=== PATIENT | male | born 1955 | race Caucasian/White ===

== ENCOUNTER 2020-08-02 21:25 | Emergency (ER) | payer BC, OTHER ==
[2020-08-02] MEDS ORDERED: ONDANSETRON HCL INJ/PF 4 MG/2 ML SDV IV ONE (22:28)
[2020-08-02] MEDS ORDERED: DIAZEPAM INJ 10 MG/2 ML DISP.SYRIN IV ONE ×2 (22:29→23:49)
[2020-08-02] MEDS ORDERED: HYDROMORPHONE HCL INJ/PF 2 MG/ML AMPULE IV ONE ×2 (22:30→23:49)
--- NOTE | 2020-08-02 22:35 | ER Document Report ---
ED General - General Chief Complaint: Back Pain Stated Complaint: BACK/LEG PAIN Time Seen by Provider: 08/02/20 22:13 Primary Care Provider: SALOMÓN CHÁVEZ MD [Primary Care Provider] - Follow up as needed - [facility] Context: Time:2219 Chief Complaint: [Left sided buttock and lower extremity pain] [This is a 65-year-old male with a diagnosis of left-sided sciatica presenting complaining of severe left-sided pain. Patient states that he has been having a moderate amount of pain secondary to the sciatica on his left side and is scheduled for a follow-up with a specialist in 3 days. Patient states he was bending over today and had sudden onset of pain that he describes as sharp and rates as a 10 on a scale of 0-10. Patient states the pain starts from his left buttock and radiates down the back of his left leg. Patient states pain is so bad he is not able to bear weight on his left leg. ] History obtained from [patient] Symptoms began:[Earlier today] Onset: [Sudden] Timing: [Sudden] Quality: [Sharp] Intensity: [10 out of 10] Location: [Left buttock radiating down left leg] Radiation: [As above] Aggravating factors: Movement, weightbearing Relieving factors: [none] [Denies] SOB [Denies] nausea [Denies] vomiting [Denies] sweats [Denies] fever [Denies] cough [Denies] calf or leg swelling or pain - Related Data Allergies/Adverse Reactions: No Known Allergies Allergy (Unverified 08/02/20 21:36) Past Medical History - General Information source: Patient - Social History Smoking Status: Unknown if Ever Smoked Family History: Reviewed & Not Pertinent Neurological Medical History: Reports: Other - Sciatica Review of Systems - Review of Systems Notes: Review of systems as below unless otherwise stated in HPI. CONSTITUTIONAL [No] fever, [No] chills. EYES [No] eye pain. ENT [No] URI symptoms, [No] sore throat, [No] ear pain. CARDIOVASCULAR [No] chest pain, [No] palpitations, [No] edema. RESPIRATORY [No] Cough, [No] SOB, [No] wheezing. GASTROINTESTINAL [No] abdominal pain, [No] nausea, [No] Diarrhea, [No] Vomiting, [No] constipation, [No] melena, [No] rectal bleeding. GENITOURINARY [No] dysuria, [No] urinary frequency, [No] hematuria, [No] urinary urgency MUSCULOSKELETAL [No] Back pain. SKIN [No] Rash. NEUROLOGIC [No] Headache, [No] recent seizures, [No] paralysis,[No] parathesias. Left buttock pain radiating down left posterior extremity ENDOCRINE [No] polyuria. HEMO/LYMPATIC [No] easy brusing PSYCHIATRIC [No] depression. Physical Exam - Vital signs Vitals: Temp Pulse Resp BP Pulse Ox 98.1 F 73 18 151/80 H 98 08/02/20 21:25 08/02/20 21:25 08/02/20 21:25 08/02/20 21:25 08/02/20 21:25 - Notes Notes: CONSTITUTIONAL [Vital signs reviewed, Patient appears very uncomfortable, Alert and oriented X 3, Normal stature.] HEAD [Atraumatic, Normocephalic.] EYES [Eyes are normal to inspection, No discharge from eyes, Extraocular muscles intact, Sclera are normal, Conjunctiva are normal.] ENT [External ears normal to inspection, Nose examination normal, Mouth normal to inspection.] NECK [Normal ROM, No jugular venous distention, No meningeal signs, ] RESPIRATORY CHEST [Chest is nontender, Breath sounds normal, No respiratory distress.] CARDIOVASCULAR [RRR, No murmurs, Normal S1 S2, No rub, No gallop.] ABDOMEN [Abdomen is nontender, No pulsatile masses, No other masses, Bowel sounds normal, No distension, No peritoneal signs, No hernias.] BACK [There is no CVA Tenderness, There is no tenderness to palpation, Normal inspection.] UPPER EXTREMITY [Inspection normal, No cyanosis, No clubbing, No edema, LOWER EXTREMITY Positive left straight leg raise at 15 degrees no cyanosis, No clubbing, No edema, No calf tenderness, NEURO [No focal motor deficits, No focal sensory deficits, Speech normal.] SKIN [Skin is warm, Skin is dry, Skin is normal color.] PSYCHIATRIC [Normal affect. ] Course - Re-evaluation Re-evalutation: 08/03/20 02:59 Patient states his pain is improved at this point. Diagnosis, plan of treatment, follow-up discussed with patient and patient's . Both are in agreement with plan. All questions were answered prior to discharge. - Vital Signs Vital signs: Temp Pulse Resp BP Pulse Ox 98.1 F 73 18 151/80 H 98 08/02/20 21:25 08/02/20 21:25 08/02/20 21:25 08/02/20 21:25 08/02/20 21:25 - Laboratory Results Critical Laboratory Results Reviewed: No Critical Results - Radiology Results Critical Radiology Results Reviewed: No Critical Results Discharge - Discharge Clinical Impression: Left sided sciatica Condition: Stable Disposition: HOME, SELF-CARE Additional Instructions: Return to the Emergency Department without delay if any worse. Follow up with your sciatica doctor on 08/04/2020 HOME CARE INSTRUCTIONS & INFORMATION: Thank you for choosing us for your medical needs. We hope you're satisfied with the care you received. After you leave, you must properly care for your problem and, at the same time, observe its progress. Any condition can change. Some illnesses can change rapidly over hours or days. If your condition worsens, return to the Emergency Department or see your physician promptly. ABOUT YOUR X-RAYS AND EKG'S: If you had an EKG or X-rays taken, they have been read by the Emergency Physician. The X-rays and EKG's will also be read by a Radiologist or Reimbursement Spec within 24 hours. If discrepancies are noted, you will be notified by telephone. Please be certain the ED has a correct telephone number & address where you can be reached. Also, realize that some fractures or abnormalities do not show up on initial X-rays. If your symptoms continue, see your physician. ABOUT YOUR LABORATORY TEST: If you had laboratory tests, the results have been reviewed by the Emergency Physician. Some test results (for example cultures) may not be available for several days. You will be contacted if any test result shows you need additional treatment. Please be certain the ED has a correct telephone number and address where you can be reached. ABOUT YOUR MEDICATIONS: You will receive instructions on how to take your medicine on the prescription label you receive. Additional information may be provided by the Pharmacy. If you have questions afterwards, call the ED for clarification or further instructions. Some prescribed medications may cause drowsiness. Do not perform tasks such as driving a car or operating machinery without consulting your Pharmacist. If you feel you need a refill of pain medication, your condition will need re-evaluation. Please do not call for a refill of any medication. ABOUT YOUR SIGNATURE: Signature of this document acknowledges to followin. Understanding that you received emergency treatment and that you may be released before al medical problems are known or treated. Please be certain the ED has a correct phone number & address where you can be reached. 2. Acknowledgement that you will arrange for follow-up care as recommended. 3. Authorization for the Emergency Physician to provide information to your follow-up Physician in order to maximize your care. AT ANY TIME, IF YOUR SYMPTOMS CHANGE SIGNIFICANTLY OR WORSEN OR YOU DEVELOP NEW SYMPTOMS, RETURN TO THE EMERGENCY DEPARTMENT IMMEDIATELY FOR RE-EVALUATION. OUR GOAL IS TO PROVIDE EXCELLENT MEDICAL CARE! WE HOPE THAT WE HAVE MET YOUR EXPECTATIONS DURING YOUR EMERGENCY DEPARTMENT VISIT AND THAT YOU FEEL YOU HAVE RECEIVED EXCELLENT CARE! Sciatica Your symptoms suggest "sciatica." The pain of sciatica typically radiates down the leg. Numbness in the foot or calf may also occur. Sciatica is caused by irritation of the sciatic nerve or its branches. The irritation can be due to a herniated disk in the spine, swelling and inflammation in the muscles surrounding the sciatic nerve, or direct injury of the nerve itself. Most cases of sciatica will resolve with medical treatment. Bed rest is usually recommended initially. Surgery is only necessary when the condition will not improve with rest and antiinflammatory medication. Muscle relaxers are often given if muscle soreness is present. A CAT scan of the back may be performed if a herniated disk is suspected. Re-examination is necessary if you develop increasing numbness, localized weakness in the foot or ankle, or if the pain does not respond to rest. Prescriptions: Hydromorphone HCl [Dilaudid 2 mg Tablet] 2 mg PO Q6HP PRN #15 tablet PRN Reason: pain Diazepam [Valium] 5 mg PO Q8HP PRN #15 tablet PRN Reason: spasm Prednisone [Deltasone 20 mg Tablet] 3 tab PO DAILY 4 Days #12 tablet Referrals: SALOMÓN CHÁVEZ MD [Primary Care Provider] - Follow up as needed
[2020-08-02] MEDS ORDERED: METHYLPREDNISOLONE INJ 125 MG/2 ML SDV IV ONE (23:48)
[2020-08-03] MEDS ORDERED: HYDROMORPHONE HCL INJ/PF 2 MG/ML AMPULE IV ONE (01:45)
[2020-08-03] MEDS ORDERED: DIAZEPAM INJ 10 MG/2 ML DISP.SYRIN IV ONE (01:46)
[2020-08-03] MEDS ORDERED: HYDROMORPHONE HCL 2 MG TABLET PO ONE (02:57)
[2020-08-03] MEDS ORDERED: DIAZEPAM 5 MG TABLET PO ONE (02:58)
[2020-08-03 03:31] VITALS: BP 135/80
== END 2020-08-03 03:31 | disposition home or self-care (01) ==
LOC: ER 21:25
DX: M54.32 Sciatica, left side (principal)
CPT/HCPCS: 96376; 99284; 96374; 96375; J3360 ×2; J2930; J1170 ×2; J2405

== ENCOUNTER 2020-08-22 19:48 | Emergency (ER) | payer OTHER ==
--- NOTE | 2020-08-22 20:27 | ER Document Report ---
ED Medical Screen (RME) - General Chief Complaint: Shortness Of Breath Stated Complaint: SHORTNESS OF BREATH,PAIN ALL OVER Time Seen by Provider: 08/22/20 20:13 Primary Care Provider: SALOMÓN CHÁVEZ MD [Primary Care Provider] - Follow up as needed Mode of Arrival: Wheelchair Information source: Patient Notes: Patient is a 65-year-old male presenting to the emergency department chief complaint of bilateral rib pain, shortness of breath and generalized body aches. Patient reports pain started yesterday. He denies any fever, chills, nausea, vomiting. He had a negative Covid test on Tuesday. Patient and are very concerned that there is something very wrong. Dyspnea noted on exertion. Lung sounds clear otherwise. I have greeted and performed a rapid initial assessment of this patient. A comprehensive ED assessment and evaluation of the patient, analysis of test results and completion of the medical decision making process will be conducted by additional ED providers. I have specifically instructed the patient or family members with the patient to immediately return to any nursing staff should anything change in the patient's condition or with their chief complaint. - Related Data Allergies/Adverse Reactions: No Known Allergies Allergy (Unverified 08/02/20 21:36) Physical Exam - Vital signs Vitals: Temp Pulse Resp BP Pulse Ox 98.5 F 98 22 H 131/71 H 94 08/22/20 20:12 08/22/20 20:12 08/22/20 20:12 08/22/20 20:12 08/22/20 20:12 Course - Vital Signs Vital signs: Temp Pulse Resp BP Pulse Ox 98.5 F 98 22 H 131/71 H 94 08/22/20 20:12 08/22/20 20:12 08/22/20 20:12 08/22/20 20:12 08/22/20 20:12 - Laboratory Results Result Diagrams: 08/22/20 20:39 08/22/20 20:39 Doctor's Discharge - Discharge Referrals: SALOMÓN CHÁVEZ MD [Primary Care Provider] - Follow up as needed
[2020-08-22 20:52] LABS: ABSOLUTE EOSINOPHILS # (AUTO) 0.2 10^3/uL (0.0-0.6); ABSOLUTE LYMPHOCYTES (AUTO) 1.2 10^3/uL (0.5-4.7); ABSOLUTE MONOCYTES (AUTO) 1.3 10^3/uL (0.1-1.4); ABSOLUTE NEUT (AUTO) 10.1 10^3/uL (1.7-8.2); BASOPHILS % (AUTO) 0.3 % (0-2); EOSINOPHILS % (AUTO) 1.3 % (0-6); HEMATOCRIT 39.8 % (37.9-51.0); HEMOGLOBIN 13.6 g/dL (13.5-17.0); LYMPHOCYTES % (AUTO) 9.3 % (13-45); MEAN CORPUSCULAR HEMOGLOBIN 31.7 pg (27.0-33.4); MEAN CORPUSCULAR HGB CONC 34.2 g/dL (32.0-36.0); MEAN CORPUSCULAR VOLUME 93 fl (80-97); MONOCYTES % (AUTO) 10.1 % (3-13); PLATELET COUNT 248 10^3/uL (150-450); RED BLOOD COUNT 4.29 10^6/uL (4.35-5.55); RED CELL DISTRIBUTION WIDTH 12.1 % (11.5-14.0); TOTAL CELLS COUNTED % (AUTO) 100 %; VENOUS BLOOD HCO3 28.4 mmol/L (20-32); VENOUS BLOOD PCO2 58.8 mmHg (35-63); VENOUS BLOOD PH 7.3 (7.30-7.42); WHITE BLOOD COUNT 12.7 10^3/uL (4.0-10.5)
[2020-08-22 21:08] LABS: ALBUMIN 3.8 g/dL (3.5-5.0); ALKALINE PHOSPHATASE 67 U/L (38-126); ANION GAP 6 (5-19); ASPARTATE AMINO TRANSFERASE 36 U/L (17-59); BILIRUBIN,DIRECT 0.2 mg/dL (0.0-0.4); BILIRUBIN,TOTAL 0.5 mg/dL (0.2-1.3); BLOOD UREA NITROGEN 12 mg/dL (7-20); CARBON DIOXIDE 30 mmol/L (22-30); CHLORIDE 99 mmol/L (98-107); GLUCOSE 145 mg/dL (75-110); POTASSIUM 4.2 mmol/L (3.6-5.0); TOTAL PROTEIN 6.6 g/dL (6.3-8.2)
[2020-08-22 21:20] LABS: NT PRO BNP 35 pg/mL (<125)
[2020-08-22 21:25] LABS: TROPONIN I < 0.012 ng/mL
--- NOTE | 2020-08-22 22:02 | EKG REPORT ---
SEVERITY:- ABNORMAL ECG - SINUS RHYTHM LEFT ATRIAL ABNORMALITY PROBABLE POSTERIOR INFARCT : Confirmed by: Paty Olvera 22-Aug-2020 22:01:44
--- NOTE | 2020-08-22 22:03 | RADIOLOGY REPORT (SQ) ---
EXAM DESCRIPTION: XR CHEST 1 VIEW COMPLETED DATE/TME: 08/22/2020 21:06 CLINICAL HISTORY: 65 years, Male, shortness of breath COMPARISON: None. NUMBER OF VIEWS: 1 TECHNIQUE: Portable chest LIMITATIONS: None. FINDINGS: Heart size is normal. Bibasilar airspace opacities. No pneumothorax. Tiny bibasilar effusions IMPRESSION: Bibasilar airspace opacities with tiny bibasilar effusions copyright 2011 [employer]- All Rights Reserved
[2020-08-22 22:50] LABS: APPEARANCE,URINE CLEAR; BILIRUBIN,URINE NEGATIVE (NEGATIVE); COLOR,URINE YELLOW; GLUCOSE, URINE NEGATIVE (NEGATIVE); KETONES,URINE NEGATIVE (NEGATIVE); LEUKOCYTE ESTERASE,URINE NEGATIVE (NEGATIVE); NITRITE,URINE NEGATIVE (NEGATIVE); PROTEIN,URINE NEGATIVE (NEGATIVE); URINE SPECIFIC GRAVITY 1.019
[2020-08-23 03:37] VITALS: BP 135/92
[2020-08-23] MEDS ORDERED: AZITHROMYCIN 250 MG TABLET PO ONE (03:42)
--- NOTE | 2020-08-23 03:49 | ER Document Report ---
ED Respiratory Problem - General Chief Complaint: Shortness Of Breath Stated Complaint: SHORTNESS OF BREATH,PAIN ALL OVER Time Seen by Provider: 08/22/20 20:13 Primary Care Provider: SALOMÓN CHÁVEZ MD [Primary Care Provider] - Follow up as needed Mode of Arrival: Wheelchair Information source: Patient Notes: 65-year-old male presented to ED for complaint of bilateral rib pain shortness of breath and generalized body aches. He states the pain started yesterday. He denies any fevers chills nausea or vomiting. He states he had a negative Covid test on Tuesday. Patient and were concerned because they thought something was seriously wrong. He states he has had body aches for 10 days. States he also has a history of herniated disc and is post to go to [place] for neuro surgeon consult. Constitutional: Negative for fever. HENT: Negative for sore throat. Eyes: Negative for visual changes. Cardiovascular: Negative for chest pain. Respiratory: Short of breath hurts to take a deep breath cough congestion Gastrointestinal: Negative for abdominal pain, vomiting or diarrhea. Genitourinary: Negative for dysuria. Musculoskeletal: Complains of worsening back pain and has a consult with neurosurgery and [place] on Tuesday states he has herniated disc. He also complains of bilateral rib pain with no rib injuries. Skin: Negative for rash. Neurological: Negative for headaches, weakness or numbness. 10 point ROS negative except as marked above and in HPI. VITAL SIGNS: Within normal limits. GENERAL: No acute distress, non-toxic appearance. HEAD: Normal with no signs of head trauma. EYES: PERRLA, EOMI, conjunctiva normal, no discharge. EARS: Hearing grossly intact. NOSE: Normal. THROAT: Oropharynx is normal. NECK: Normal range of motion, no tenderness, supple, no lymphadenopathy, No adenopathy, no JVD. CHEST: Diminished lung sounds bilateral because patient states it hurts to take a deep breath. He cannot lay back because the is too short of breath to lay back and it also increases his back pain. CARDIAC: Regular rate and rhythm. S1 and S2, without murmurs, gallops, or rubs. VASCULAR: No Edema. Peripheral pulses normal and equal in all extremities. ABDOMEN: Normal and soft with no tenderness, no masses or pulsatile masses. GASTROINTESTINAL: Bowel sounds normal GENITOURINARY: Normal, No tenderness LYMPATHTIC: No lymphadenopathy noted. MUSCULOSKELETAL: Patient complains of severe back pain due to herniated disc he was diagnosed with. He states he does have a consult with a back specialist in [place] on Tuesday NEUROLOGICAL: Alert and oriented x 3. No focal sensory or strength deficits. Speech normal. Follows commands appropriately. PSYCHIATRIC: Normal Affect, judgement and mood. SKIN: Normal appearance with no rashes or lesions. - HPI Patient complains to provider of: Cough, Hurts to breath, Short of breath, Other - Severe chronic back pain Onset: Other - Severe pain has been for the last 24 to 48 hours but he has had pain in the ribs for several days Quality of pain: Sharp, Throbbing Severity: Moderate Short of Breath: Moderate Chest pain/discomfort: Worse with deep breaths Cough: Nonproductive Sputum amount: None Associated symptoms: Congestion, Cough, PND, Runny nose, Short of breath Similar symptoms previously: Yes Recently seen / treated by doctor: Yes - Related Data Allergies/Adverse Reactions: No Known Allergies Allergy (Unverified 08/02/20 21:36) Past Medical History - General Information source: Patient - Social History Smoking Status: Never Smoker Frequency of alcohol use: None Drug Abuse: None Lives with: Family Family History: Reviewed & Not Pertinent Patient has homicidal ideation: No - Past Medical History Cardiac Medical History: Reports: Hx Hypercholesterolemia Pulmonary Medical History: Reports: None EENT Medical History: Reports: None Neurological Medical History: Reports: None Endocrine Medical History: Reports: None Renal/ Medical History: Reports: None Malignancy Medical History: Reports None GI Medical History: Reports: None Musculoskeletal Medical History: Reports Hx Musculoskeletal Deformity, Reports Hx Musculoskeletal Trauma Skin Medical History: Reports None Psychiatric Medical History: Reports: None Traumatic Medical History: Reports: None Infectious Medical History: Reports: None Past Surgical History: Reports: Hx Appendectomy Physical Exam - Vital signs Vitals: Temp Pulse Resp BP Pulse Ox 98.5 F 98 22 H 131/71 H 94 08/22/20 20:12 08/22/20 20:12 08/22/20 20:12 08/22/20 20:12 08/22/20 20:12 Course - Re-evaluation Re-evalutation: 08/23/20 08:19 Discussed assessment, x-ray, and labs with Dr. Moreno. He recommended prescription for antibiotics and steroids and discharged home with family. He is person under investigation for the Covid 19 and his x-ray did show bilateral pneumonia - Vital Signs Vital signs: Temp Pulse Resp BP Pulse Ox 97.3 F 98 20 135/92 H 97 08/23/20 03:50 08/22/20 20:12 08/23/20 03:01 08/23/20 03:01 08/23/20 03:01 - Laboratory Results Result Diagrams: 08/22/20 20:39 08/22/20 20:39 Laboratory Results Interpreted: 08/22/20 08/22/20 08/22/20 20:39 20:39 22:35 WBC 12.7 H RBC 4.29 L Lymph % (Auto) 9.3 L Absolute Neuts (auto) 10.1 H Seg Neutrophils % 79.0 H Sodium 134.7 L Glucose 145 H ALT 63 H Urine Urobilinogen 2.0 H Urine Ascorbic Acid 20 H Critical Laboratory Results Reviewed: No Critical Results - Radiology Results Critical Radiology Results Reviewed: No Critical Results Discharge - Discharge Clinical Impression: bibasilar pneumonia, Person under investigation for COVID-19 Condition: Stable Disposition: HOME, SELF-CARE Instructions: COVID-19 Guidance for Persons Under Investigation Additional Instructions: PNEUMONIA: Your examination indicates that you have pneumonia. This is an infection of the lung tissue, usually caused by bacteria or a virus. Symptoms include cough, fever, shaking chills, chest pain, shortness of breath, and coughing up bloody sputum. Treatment for bacterial pneumonia includes rest, antibiotics for 10 to 14 days, increasing your clear liquid intake, a cool mist humidifier at your bedside, and fever medication. Often, a repeat chest X-ray is performed in a few weeks--even if you feel better--to ascertain whether the infection has completely resolved and no underlying lung problem is present. You should call the physician if you develop persistent vomiting, high fever that does not respond to fever medication, increasing shortness of breath, confusion, or lethargy. Also, failure to improve within two to three days is an indication for re-examination. AZITHROMYCIN: Azithromycin (Zithromax) is a broad spectrum antibiotic in the same class as erythromycin. It can treat a variety of bacterial infections, but is most frequently used for respiratory infections. Azithromycin is extremely long-lasting. It accumulates in body tissues and continues to kill bacteria for many days. In order to improve absorption, Azithromycin should be taken at least one hour before or two hours after a meal. It does not have the same strong tendency to upset the stomach as erythromycin and is usually very well hiwot ated. Patients who have had a rash or other true allergic reactions to erythromycin should not take this medication. Call if you develop gastrointestinal distress, severe diarrhea, rash, hives, itching, or shortness of breath. DOXYCYCLINE: Doxycycline (Vibramycin, Doryx) is an antibiotic of the tetracycline family. This type of drug is useful for infections of the respiratory tract and genital tract, and is sometimes used for intestinal infections. Unlike most tetracyclines, doxycycline can be taken with food. It is longer acting, and (usually) less prone to side effects than regular tetracycline. Tetracycline antibiotics can stain immature teeth and SHOULD NOT BE TAKEN BY CHILDREN, NURSING MOTHERS, OR WOMEN. Tetracyclines can make you more prone to sunburn. Abdominal cramping, nausea, and diarrhea are occasional side effects. Women may experience vaginal yeast infections. Call the doctor at once if you develop hives, itching, shortness of breath, or lightheadedness. USE OF ACETAMINOPHEN (Tylenol): Acetaminophen may be taken for pain relief or fever control. It's much safer than aspirin, offering a wider range of "safe" dosages. It is safe during . Some brand names are Tylenol, Panadol, Datril, Anacin 3, Tempra, and Liquiprin. Acetaminophen can be repeated every four hours. The following are maximum recommended dosages: WEIGHT Dose Drops Elixir Chewable(80mg) (LBS.) drprs=droppers tsp=teaspoon 6 40 mg 0.4 ml (1/2) 6-11 80 mg 0.8 ml (full) tsp 1 tab 12-16 120 mg 1 1/2 drprs 3/4 tsp 1 1/2 tabs 17-23 160 mg 2 drprs 1 tsp 2 tabs 24-30 240 mg 3 drprs 1 1/2 tsp 3 tabs 30-35 320 mg 2 tsp 4 tabs 36-41 360 mg 2 1/4 tsp 4 1/2 tabs 42-47 400 mg 2 1/2 tsp 5 tabs 48-53 480 mg 3 tsp 6 tabs 54-59 520 mg 3 1/4 tsp 6 1/2 tabs 60-64 560 mg 3 1/2 tsp 7 tabs 65-70 600 mg 3 3/4 tsp 7 1/2 tabs 71-76 640 mg 4 tsp 8 tabs 77-82 720 mg 4 1/2 tsp 9 tabs 83-88 800 mg 5 tsp 10 tabs >89 pounds or adults 650 mg to 900 mg Acetaminophen can be repeated every four hours. Maximum dose not to exceed 4000 mg a day. These maximum recommended dosages are slightly higher than the dosages written on the product container, but these dosages are very safe and below the toxic dosage for acetaminophen. Have been given an incentive spirometer please use this 10 times an hour every hour while awake. The nurse has demonstrated how to use this to exercise your lungs. This will decrease the chance of your pneumonia increasing by causing you to take deeper breaths than you are doing now. Given you a copy of all of your labs and chest x-ray. Please follow-up with your primary care doctor telephone and discussed these labs and x-ray with him. Patient was provided with discharge information including: As a person under investigation for Covid 19, the [place] department of Health and Human Services, division of public health advises you to adhere to the following guidance until your test results are reported to you. If your test result is positive, you will receive additional information from your provider and your local health department at that time. Remain at home until you are cleared by the health provider or public health authorities. Keep a log of visitors to your home, notify any visitors to your home of your isolation status. If you plan to move to a new address or leave the county, notify the local health department in your County. Call your doctor or seek care if you have an urgent medical need. Before seeking medical care, call ahead to get instructions from the provider before arriving at the medical office clinic or hospital. Notify them that you are being tested for the virus that causes Covid 19 so that arrangements can be made, as necessary, to prevent transmission to others in the healthcare setting. Next, notify the local health department in your county. If a medical emergency arises and you need to call 911, inform the first responders that you are being tested for the virus that causes Covid 19. Next, notify the local health department in your county. Prescriptions: Azithromycin 250 mg PO DAILY #4 tablet Forms: Elevated Blood Pressure Referrals: SALOMÓN CHÁVEZ MD [Primary Care Provider] - Follow up as needed
== END 2020-08-23 04:20 | disposition home or self-care (01) ==
LOC: ER 19:48
DX: J18.9 Pneumonia, unspecified organism (principal); R07.81 Pleurodynia; R06.02 Shortness of breath; R07.1 Chest pain on breathing; R05 Cough; R09.82 Postnasal drip; R09.89 Other specified symptoms and signs involving the circulatory and respiratory systems; M54.9 Dorsalgia, unspecified; G89.29 Other chronic pain; Z20.822 Contact with and (suspected) exposure to COVID-19
CPT/HCPCS: 93005; 99285; 36415; 85025; 87635; 80053; 81001; 84484; 82803; 83880; 71045; 93010; C9803